=== PATIENT | female | born 1965 | race American Indian/Alaskan Native ===

== ENCOUNTER 2016-07-12 11:57 | Emergency (ER) | payer SELFPAY ==
[2016-07-12 13:21] LABS: Basophils % (Auto) 0.7 % (0.0-1.8); Eosinophils % (Auto) 0.3 % (0.0-4.3); Hematocrit 37.4 % (30.3-42.9); Hemoglobin 12.1 gm/dl (10.1-14.3); Mean Corpuscular HGB Conc 32 % (30-34); Mean Corpuscular Hemoglobin 29 pg (28-32); Mean Corpuscular Volume 90 fl (79-97); Platelet Count 307 K/mm3 (140-440); Red Blood Count 4.17 M/mm3 (3.65-5.03); Red Cell Distribution Width 14.1 % (13.2-15.2); White Blood Count 6.2 K/mm3 (4.5-11.0)
[2016-07-12 13:31] LABS: Anion Gap 19 mmol/L; BUN/Creatinine Ratio 12.85; Blood Urea Nitrogen 9 mg/dL (7-17); Calcium 9.3 mg/dL (8.4-10.2); Carbon Dioxide 26 mmol/L (22-30); Chloride 100.5 mmol/L (98-107); Glucose 88 mg/dL (65-100); Potassium 4.2 mmol/L (3.6-5.0); Sodium 141 mmol/L (137-145)
--- NOTE | 2016-07-12 23:10 | Emergency Department Report ---
ED Dizziness HPI - General Chief Complaint: Dizziness Stated Complaint: DIZZINESS Time Seen by Provider: 07/12/16 23:00 Source: patient Mode of arrival: Ambulatory Limitations: No Limitations - History of Present Illness Initial Comments: Patient reports at 10 AM she was at work when she had the sensation of some lightheadedness. She also noted some left arm pains and some pain in the midportion of her back. She was concerned it may be cardiac in nature. She came to the emergency department for further evaluation and care. She has been in the ED for the last 11 hours. She indicates that over that time. The left arm pain has resolved. She also reports resolution of the dizziness. She states she still has some pains in the right subscapular area. She denies any heavy lifting or strenuous activities that would've caused this pain. Patient did have a visit here 3 months ago regarding chest pain. She did have Lexiscan at that time which was negative. Patient denies any headache currently. She denies any history of migraines in general. MD Complaint: lightheadedness, near syncope, other (R arm pain and back pains) -: Sudden Timing: sudden onset Description: lightheadedness, near-syncope History of Same: No History of Trauma: No Severity: moderate Improves With: remaining still Worsens With: position Associated Symptoms: other (above) - Related Data Home Medications Medication Instructions Recorded Confirmed Last Taken amLODIPine [Norvasc] 10 mg PO DAILY 02/21/16 02/26/16 04/07/16 Previous Rx's Medication Instructions Recorded Last Taken Type Aspirin EC [Aspirin Enteric Coated 81 mg PO QDAY #30 tablet. 02/22/16 Rx TAB] Sulfamethoxazole/Trimethoprim 1 each PO BID #20 tablet 04/13/16 Unknown Rx [Bactrim DS TAB] traMADol [Ultram 50 MG tab] 50 mg PO Q6HR PRN #7 tablet 04/13/16 Unknown Rx Allergies Allergy/AdvReac Type Severity Reaction Status Date / Time No Known Allergies Allergy Verified 07/12/16 12:24 ED Review of Systems ROS: Stated complaint: DIZZINESS Other details as noted in HPI Constitutional: denies: chills, fever Eyes: denies: eye pain, eye discharge, vision change ENT: denies: ear pain, throat pain Respiratory: denies: cough, shortness of breath, wheezing Cardiovascular: denies: chest pain, palpitations Endocrine: no symptoms reported Gastrointestinal: denies: abdominal pain, nausea, diarrhea Genitourinary: denies: urgency, dysuria, discharge Musculoskeletal: back pain. denies: joint swelling, arthralgia Skin: denies: rash, lesions Neurological: denies: headache, weakness, paresthesias Psychiatric: denies: anxiety, depression Hematological/Lymphatic: denies: easy bleeding, easy bruising ED Past Medical Hx - Past Medical History Hx Hypertension: Yes Hx Congestive Heart Failure: No Hx Diabetes: No Hx GERD: Yes Hx Asthma: No Hx COPD: No - Surgical History Additional Surgical History: c section x 3 - Social History Smoking Status: Never Smoker Substance Use Type: Alcohol - Medications Home Medications: Home Medications Medication Instructions Recorded Confirmed Last Taken Type amLODIPine [Norvasc] 10 mg PO DAILY 02/21/16 02/26/16 04/07/16 History Aspirin EC [Aspirin Enteric Coated 81 mg PO QDAY #30 tablet. 02/22/1604/07/16 Rx TAB] Sulfamethoxazole/Trimethoprim 1 each PO BID #20 tablet 04/13/16 Unknown Rx [Bactrim DS TAB] traMADol [Ultram 50 MG tab] 50 mg PO Q6HR PRN #7 tablet 04/13/16 Unknown Rx ED Physical Exam - General Limitations: No Limitations General appearance: alert, in no apparent distress - Head Head exam: Present: atraumatic, normocephalic - Eye Eye exam: Present: normal appearance - ENT ENT exam: Present: normal exam, normal orophraynx, mucous membranes moist - Neck Neck exam: Present: normal inspection - Respiratory Respiratory exam: Present: normal lung sounds bilaterally. Absent: respiratory distress - Cardiovascular Cardiovascular Exam: Present: regular rate, normal rhythm. Absent: systolic murmur, diastolic murmur, rubs, gallop - GI/Abdominal GI/Abdominal exam: Present: soft, normal bowel sounds - Extremities Exam Extremities exam: Present: normal inspection. Absent: tenderness, pedal edema, calf tenderness - Back Exam Back exam: Present: normal inspection - Neurological Exam Neurological exam: Present: alert, oriented X3 - Psychiatric Psychiatric exam: Present: normal affect, normal mood - Skin Skin exam: Present: warm, dry, intact, normal color. Absent: rash ED Course Vital Signs 07/12/16 12:17 Temperature 98.4 F Pulse Rate 70 Respiratory 17 Rate Blood Pressure 156/95 O2 Sat by Pulse 100 Oximetry - Reevaluation(s) Reevaluation #1: 07/12/16 23:01 EKG a 1208 with NSR at 72 bpm normal NC and QRS. Normal axis. No acute ST segment changes noted. Reevaluation #2: 07/12/16 23:17 Unremarkable examination here. Neurologically intact. I do not have concern for neurologic etiology. ECG here is unremarkable. Enzymes 3 are negative. Lexiscan is very reassuring. Barren in general does not sound cardiac in nature. It is unclear to me exactly what caused patient's symptoms. I have some thoughts of possible complex migraine I also question whether she did not have an adequate oral intake earlier this morning with some mild volume depletion. Regardless at this time she is very stable with a normal blood pressure and heart rate. She is intact neurologically. Cardiovascularly I do not have suspicion for about this. I feel she is safe for home. Patient has been given reassurance. She agrees to return if she has any acute return of symptoms. ED Medical Decision Making - Lab Data Result diagrams: 07/12/16 13:00 07/12/16 13:00 Critical care attestation.: If time is entered above; I have spent that time in minutes in the direct care of this critically ill patient, excluding procedure time. ED Disposition Clinical Impression: Near syncope Back pain Qualifiers: Back pain location: thoracic back pain Chronicity: unspecified Back pain laterality: right Qualified Code(s): M54.6 - Pain in thoracic spine Disposition: DISCHARGED TO HOME OR SELFCARE Is pt being admited?: No Does the pt Need Aspirin: No Condition: Stable Instructions: Lightheadedness (ED) Additional Instructions: Eat healthy diet. Take tylenol as needed for pains. Return if worsening. Referrals: PRIMARY CARE, [Primary Care Provider] - 3-5 Days Time of Disposition: 23:12
[2016-07-12] MEDS ORDERED: TYLENOL PO ONE (23:12)
[2016-07-12 23:49] VITALS: BP 134/84
== END 2016-07-12 23:48 | disposition home or self-care (01) ==
LOC: ED 11:57
DX: R55 Syncope and collapse (principal); M54.6 Pain in thoracic spine; M79.601 Pain in right arm; I10 Essential (primary) hypertension; K21.9 Gastro-esophageal reflux disease without esophagitis
CPT/HCPCS: 36415; 80048; 84484; 85025; 93005; 93010

== ENCOUNTER 2016-08-24 08:12 | Emergency (ER) | payer SELFPAY ==
[2016-08-24 09:03] LABS: Basophils % (Auto) 0.9 % (0.0-1.8); Eosinophils % (Auto) 0.6 % (0.0-4.3); Hematocrit 37.5 % (30.3-42.9); Hemoglobin 12.3 gm/dl (10.1-14.3); Mean Corpuscular HGB Conc 33 % (30-34); Mean Corpuscular Hemoglobin 30 pg (28-32); Mean Corpuscular Volume 91 fl (79-97); Platelet Count 315 K/mm3 (140-440); Red Blood Count 4.13 M/mm3 (3.65-5.03); Red Cell Distribution Width 14.3 % (13.2-15.2); White Blood Count 4.9 K/mm3 (4.5-11.0)
[2016-08-24 09:17] LABS: Anion Gap 16 mmol/L; BUN/Creatinine Ratio 11.66; Blood Urea Nitrogen 7 mg/dL (7-17); Calcium 9.3 mg/dL (8.4-10.2); Carbon Dioxide 28 mmol/L (22-30); Chloride 101.4 mmol/L (98-107); Glucose 93 mg/dL (65-100); Potassium 4.1 mmol/L (3.6-5.0); Sodium 141 mmol/L (137-145)
--- NOTE | 2016-08-24 09:33 | XRay Report ---
Chest 2 views . History: Shortness of breath. Findings: The heart and lungs reveal no acute findings or interval changes since February 21, 2016.
[2016-08-24] MEDS ORDERED: TORADOL IM ONE (11:01)
--- NOTE | 2016-08-24 11:04 | Emergency Department Report ---
ED Chest Pain HPI - General Chief Complaint: Chest Pain Stated Complaint: CHEST PAIN/BACK /SOB Time Seen by Provider: 08/24/16 10:57 Source: patient Mode of arrival: Ambulatory Limitations: No Limitations - History of Present Illness Initial Comments: This is a 50-year-old Afro-[place] female who drove herself in to be seen today with complaint of midsternal chest pain with some radiation to the back has been going on intermittently since Sunday, 5 days ago, but worsened slightly last night. She denies any shortness of breath, nausea, vomiting but does have some nonspecific dizziness. She did not take anything for her symptoms prior to presentation. No recent travel or sick contacts at home. 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 The patient had a negative stress test here in February 2016. - Related Data Home Medications Medication Instructions Recorded Confirmed Last Taken amLODIPine [Norvasc] 10 mg PO DAILY 02/21/16 02/26/16 04/07/16 Previous Rx's Medication Instructions Recorded Last Taken Type Aspirin EC [Aspirin Enteric Coated 81 mg PO QDAY #30 tablet. 02/22/16 Rx TAB] Sulfamethoxazole/Trimethoprim 1 each PO BID #20 tablet 04/13/16 Unknown Rx [Bactrim DS TAB] traMADol [Ultram 50 MG tab] 50 mg PO Q6HR PRN #7 tablet 04/13/16 Unknown Rx Allergies Allergy/AdvReac Type Severity Reaction Status Date / Time No Known Allergies Allergy Verified 07/12/16 12:24 ANGELA score - Angela Score Age > 65: (0) No Aspirin use within the Past 7 Days: (0) No 3 or more CAD Risk Factors: (0) No 2 or more Angina events in past 24 hrs: (1) Yes Known CAD with more than 50% Stenosis: (0) No Elevated Cardiac Markers: (0) No ST Deviation Greater than 0.5mm: (0) No ANGELA Score: 1 ED Review of Systems ROS: Stated complaint: CHEST PAIN/BACK /SOB Other details as noted in HPI Comment: All other systems reviewed and negative Constitutional: denies: chills, fever Eyes: denies: eye pain, eye discharge, vision change ENT: denies: ear pain, throat pain Respiratory: denies: cough, shortness of breath, wheezing Cardiovascular: chest pain. denies: palpitations Gastrointestinal: denies: abdominal pain, nausea, diarrhea Genitourinary: denies: urgency, dysuria, discharge Musculoskeletal: back pain. denies: arthralgia Skin: denies: rash, lesions Neurological: denies: headache, weakness, paresthesias ED Past Medical Hx - Past Medical History Hx Hypertension: Yes Hx Congestive Heart Failure: No Hx Diabetes: No Hx GERD: Yes Hx Asthma: No Hx COPD: No - Surgical History Additional Surgical History: c section x 3 - Social History Smoking Status: Never Smoker Substance Use Type: Alcohol - Medications Home Medications: Home Medications Medication Instructions Recorded Confirmed Last Taken Type amLODIPine [Norvasc] 10 mg PO DAILY 02/21/16 02/26/16 04/07/16 History Aspirin EC [Aspirin Enteric Coated 81 mg PO QDAY #30 tablet. 02/22/1604/07/16 Rx TAB] Sulfamethoxazole/Trimethoprim 1 each PO BID #20 tablet 04/13/16 Unknown Rx [Bactrim DS TAB] traMADol [Ultram 50 MG tab] 50 mg PO Q6HR PRN #7 tablet 04/13/16 Unknown Rx ED Physical Exam - General Limitations: No Limitations - Other Other exam information: GENERAL: The patient is well-developed well-nourished. HEENT: Normocephalic. Atraumatic. Extraocular motions are intact. Patient has moist mucous membranes. Pupils equal reactive to light bilaterally. NECK: Supple. Trachea is midline. CHEST/LUNGS: Clear to auscultation. There is no respiratory distress noted. Patient's midsternal chest pain is reproducible to palpation of the chest wall. HEART/CARDIOVASCULAR: Regular. There is no tachycardia. There is no gallop rub or murmur. ABDOMEN: Abdomen is soft, nontender. Patient has normal bowel sounds. There is no abdominal distention. SKIN: Skin is warm and dry. NEURO: The patient is awake, alert, and oriented. The patient is cooperative. The patient has no focal neurologic deficits. The patient has normal speech. MUSCULOSKELETAL: There is no tenderness or deformity. There is no limitation range of motion. There is no evidence of acute injury. ED Course Vital Signs 08/24/16 08/24/16 08:29 11:12 Temperature 98.2 F 98.3 F Pulse Rate 102 H 77 Respiratory 16 Rate Blood Pressure 135/87 Blood Pressure 124/69 [Left] O2 Sat by Pulse 100 96 Oximetry ED Medical Decision Making - Lab Data Result diagrams: 08/24/16 08:44 08/24/16 08:44 - EKG Data -: EKG Interpreted by Me EKG shows normal: sinus rhythm, axis, intervals, QRS complexes, ST-T waves Rate: normal - EKG Data When compared to previous EKG there are: previous EKG unavailable Interpretation: normal EKG - Radiology Data Radiology results: image reviewed interpreted by me: Chest x-ray did not show any acute process. Heart is normal shape and size. No effusions. No pneumothorax. No signs of pneumonia seen. - Medical Decision Making 50-year-old presents with 5 day history of midsternal chest pain with radiation to the back. Patient was evaluated with physical exam, labs, imaging EKG. EKG is normal without ST elevation RI, ischemia or dysrhythmia. Chest x-ray does not show any acute process. Patient's labs were unremarkable including negative troponins 2 and a negative d-dimer. On top of all this, the patient had a negative stress test here [facility] for months ago. Patient was given a dose of Toradol and upon reevaluation says she is feeling much better. The chest pain is reproducible to palpation of chest wall. Patient has a ANGELA score of 1 if her pain is considered to be angina and 0 if not. She is very low on the heart score. From this reason the patient appears safe for discharge home at this time. She'll be given referrals for primary care and cardiology. She will return to the emergency department with any worsening of her symptoms or any acute distress. - Differential Diagnosis costochondritis, GERD, RI, PE Critical Care Time: No Critical care attestation.: If time is entered above; I have spent that time in minutes in the direct care of this critically ill patient, excluding procedure time. ED Disposition Clinical Impression: Chest discomfort, Costochondritis Disposition: DISCHARGED TO HOME OR SELFCARE Is pt being admited?: No Condition: Stable Instructions: Chest Pain (ED), Costochondritis (ED) Additional Instructions: Please follow-up with a primary care doctor in the next few days. I've given a referral for one of the cardiologists at [facility] in the hospital 4 months ago, [address] Quach. Return to the emergency department with any worsening of your symptoms or any acute distress. Referrals: PRIMARY CAREMD [Primary Care Provider] - 3-5 Days SANTANA QUACH MD [Staff Physician] - 3-5 Days ROOSEVELT AMAYA MD [Staff Physician] - 3-5 Days Time of Disposition: 12:33
[2016-08-24 11:28] VITALS: BP 124/69
== END 2016-08-24 13:05 | disposition home or self-care (01) ==
LOC: ED 08:12
DX: M94.0 Chondrocostal junction syndrome [Tietze] (principal); I10 Essential (primary) hypertension; K21.9 Gastro-esophageal reflux disease without esophagitis
CPT/HCPCS: 36415; 71020; 80048; 84484; 84703; 85025; 85379; 93005; 93010; 96372; 99284; J1885

== ENCOUNTER 2018-10-03 10:41 | Emergency (ER) | payer OTHER ==
[2018-10-03 10:47] VITALS: BP 156/82
--- NOTE | 2018-10-03 11:21 | Emergency Department Report ---
ED General Adult HPI - General Chief complaint: High BP Stated complaint: HBP Time Seen by Provider: 10/03/18 11:13 Source: patient Mode of arrival: Ambulatory Limitations: No Limitations - History of Present Illness Initial comments: Patient is 52 years old female with history of hypertension. Patient presented to the ER complaining of headache and high blood pressure. Patient stated that her primary care physician reduce her Norvasc from 10-5. Patient stated that her blood pressure at home was 168 systolic. Patient denied any weakness, numbness or tingling sensation. No bowel or bladder incontinence. Patient denied any chest pain or shortness of breath - Related Data Home Medications Medication Instructions Recorded Confirmed Last Taken amLODIPine [Norvasc] 10 mg PO DAILY 02/21/16 02/26/16 04/07/16 Previous Rx's Medication Instructions Recorded Last Taken Type Aspirin EC 81 mg PO QDAY #30 tablet. 02/22/16 04/07/16 Rx Sulfamethoxazole/Trimethoprim 1 each PO BID #20 tablet 04/13/16 Unknown Rx [Bactrim DS TAB] traMADol [Ultram 50 MG tab] 50 mg PO Q6HR PRN #7 tablet 04/13/16 Unknown Rx Allergies Allergy/AdvReac Type Severity Reaction Status Date / Time No Known Allergies Allergy Verified 07/12/16 12:24 ED Review of Systems ROS: Stated complaint: HBP Other details as noted in HPI Comment: All other systems reviewed and negative Constitutional: denies: chills, fever Cardiovascular: denies: chest pain, palpitations Gastrointestinal: denies: abdominal pain, nausea Musculoskeletal: denies: back pain Neurological: headache. denies: weakness, numbness, paresthesias, confusion, abnormal gait, vertigo ED Past Medical Hx - Past Medical History Previous Medical History?: Yes Hx Hypertension: Yes Hx Congestive Heart Failure: No Hx Diabetes: No Hx GERD: Yes Hx Asthma: No Hx COPD: No - Surgical History Past Surgical History?: Yes Additional Surgical History: c section x 3 - Social History Smoking Status: Never Smoker Substance Use Type: None - Medications Home Medications: Home Medications Medication Instructions Recorded Confirmed Last Taken Type amLODIPine [Norvasc] 10 mg PO DAILY 02/21/16 02/26/16 04/07/16 History Aspirin EC 81 mg PO QDAY #30 tablet. 02/22/16 02/26/16 04/07/16 Rx Sulfamethoxazole/Trimethoprim 1 each PO BID #20 tablet 04/13/16 Unknown Rx [Bactrim DS TAB] traMADol [Ultram 50 MG tab] 50 mg PO Q6HR PRN #7 tablet 04/13/16 Unknown Rx ED Physical Exam - General Limitations: No Limitations General appearance: alert, in no apparent distress - Head Head exam: Present: atraumatic, normocephalic, normal inspection - Eye Eye exam: Present: normal appearance - ENT ENT exam: Present: normal exam, normal orophraynx, mucous membranes moist - Neck Neck exam: Present: normal inspection, full ROM. Absent: tenderness, meningismus, lymphadenopathy, thyromegaly - Respiratory Respiratory exam: Present: normal lung sounds bilaterally - Cardiovascular Cardiovascular Exam: Present: regular rate, normal rhythm, normal heart sounds - GI/Abdominal GI/Abdominal exam: Present: soft, normal bowel sounds. Absent: distended, te nderness, guarding, rebound, rigid, organomegaly, mass, bruit, pulsatile mass, hernia - Extremities Exam Extremities exam: Present: normal inspection, full ROM, normal capillary refill - Neurological Exam Neurological exam: Present: alert, oriented X3, CN II-XII intact, normal gait, reflexes normal - Skin Skin exam: Present: warm, intact, normal color ED Course Vital Signs 10/03/18 10:44 Temperature 97.9 F Pulse Rate 71 Respiratory 18 Rate Blood Pressure 156/82 O2 Sat by Pulse 100 Oximetry ED Medical Decision Making - Radiology Data Radiology results: report reviewed CT brain is unremarkable. Critical care attestation.: If time is entered above; I have spent that time in minutes in the direct care of this critically ill patient, excluding procedure time. ED Disposition Clinical Impression: Hypertension, Headache Disposition: - TO HOME OR SELFCARE Is pt being admited?: No Condition: Stable Instructions: Acute Headache (ED), Hypertension (ED) Referrals: PRIMARY CARE, [Referring] - 3-5 Days
--- NOTE | 2018-10-03 11:46 | Cat Scan Report ---
CT HEAD WITHOUT CONTRAST: HISTORY: Headache, high blood pressure. TECHNIQUE: Sequential 2.5mm CT images. COMPARISON: none. FINDINGS: Cerebral Parenchyma: Within normal limits. Cerebellum: Within normal limits. Brainstem: Within normal limits. Ventricles: Normal. Sella: Normal. Extra-axial spaces: Normal. Basal Cisterns: Normal. Intracranial Hemorrhage: None. Midline Shift: None. Calvarium: Normal. Sinuses: The visualized superior right maxillary sinus is occluded. The remaining sinuses are adequately aerated. Mastoid Air Cells: Normal. Visualized Orbits: Normal. IMPRESSION: Cranial CT scan within normal limits. Right maxillary sinus disease, likely chronic.
== END 2018-10-03 12:25 | disposition home or self-care (01) ==
LOC: ED 10:41
DX: I10 Essential (primary) hypertension (principal); K21.9 Gastro-esophageal reflux disease without esophagitis
CPT/HCPCS: 70450

== ENCOUNTER 2021-11-06 17:32 | Inpatient (IN) | payer SELFPAY ==
[2021-11-06] MEDS ORDERED: METOCLOPRAMIDE 10 MG/2 ML INJ IV ONE (17:47)
[2021-11-06] MEDS ORDERED: LORazepam 2 MG/ML VIAL IV ONE (17:47)
--- NOTE | 2021-11-06 17:48 | Emergency Department Report ---
<KASH BARKLEY - Last Filed: 11/06/21 20:39> ED General Adult HPI - General Chief complaint: Syncope Stated complaint: HEADACHE/SYNCOPE Time Seen by Provider: 11/06/21 17:36 Source: patient, EMS (Verbal report received from emergency medical services. EMS documentation not available at time of chart dictation ), RN notes reviewed, old records reviewed Mode of arrival: Stretcher Limitations: No Limitations - History of Present Illness Initial comments: The patient was evaluated in the emergency department for symptoms described in the history of present illness. He/she was evaluated in the context of the global COVID-19 pandemic, which necessitated consideration that the patient might be at risk for infection with the virus that causes COVID-19. Institutional protocols and algorithms that pertain to the evaluation of patients at risk for COVID-19 are in a state of rapid change based on information released by regulatory bodies including the CDC and federal and state organizations. These policies and algorithms were followed during the patient's care in the emergency department. Please note that these policies, procedures and recommendations changed on a rapid basis. This is a 55-year-old female. She has a history of hypertension and a body mass index of 40.6. She presents to the department today with EMS with a complaint of losing consciousness x3, heart racing, and headache. Her symptoms essent ially started all simultaneously. The headache is occipital, and bitemporal. The headache is not described as sudden or thunderclap in nature. This is not described as the worst headache of her life, she had a similar headache 1 month ago. She denies loss of vision, loss of taste and smell, chest pain and abdominal pain. She denies extremity weakness and numbness. She endorses heart racing, denies travel, surgery, immobilization, DVT and pulmonary embolism risk factors. No recent medication changes. Denies drug use. She is not COVID-19 vaccinated EMS reports unremarkable vital signs in the field with exception of tachycardia. Consistency: intermittent Improves with: none Worsens with: none - Related Data Home Medications Medication Instructions Recorded Confirmed Last Taken amLODIPine 10 mg PO DAILY 02/21/16 02/26/16 04/07/16 Previous Rx's Medication Instructions Recorded Last Taken Type Aspirin EC [Halfprin EC] 81 mg PO QDAY #30 tablet. 10/11/16 11/25/16 Rx Sulfamethoxazole/Trimethoprim 1 each PO BID #20 tablet 04/13/16 Unknown Rx [Bactrim DS TAB] traMADoL [Ultram 50 MG tab] 50 mg PO Q6HR PRN #7 tablet 04/13/16 Unknown Rx Allergies Allergy/AdvReac Type Severity Reaction Status Date / Time No Known Allergies Allergy Verified 11/06/21 17:35 ED Review of Systems Constitutional: denies: fever, malaise Eyes: denies: eye discharge ENT: denies: epistaxis Respiratory: denies: cough Cardiovascular: palpitations, syncope. denies: chest pain Gastrointestinal: denies: abdominal pain, hematemesis, melena, hematochezia Genitourinary: denies: dysuria Neurological: headache, weakness Psychiatric: anxiety ED Past Medical Hx - Past Medical History Hx Hypertension: Yes Hx Congestive Heart Failure: No Hx Diabetes: No Hx GERD: Yes Hx Asthma: No Hx COPD: No - Surgical History Additional Surgical History: c section x 3 - Social History Smoking Status: Never Smoker Substance Use Type: None - Medications Home Medications: Home Medications Medication Instructions Recorded Confirmed Last Taken Type amLODIPine 10 mg PO DAILY 02/21/16 02/26/16 04/07/16 History Aspirin EC [Halfprin EC] 81 mg PO QDAY #30 tablet. 02/22/16 02/26/16 04/07/16 Rx Sulfamethoxazole/Trimethoprim 1 each PO BID #20 tablet 04/13/16 Unknown Rx [Bactrim DS TAB] traMADoL [Ultram 50 MG tab] 50 mg PO Q6HR PRN #7 tablet 04/13/16 Unknown Rx ED Physical Exam - General Limitations: No Limitations General appearance: alert, anxious, obese - Head Head exam: Present: atraumatic, normocephalic - Eye Eye exam: Present: normal appearance, EOMI. Absent: nystagmus - ENT ENT exam: Present: normal exam, normal orophraynx, mucous membranes moist, normal external ear exam - Neck Neck exam: Present: normal inspection, full ROM. Absent: tenderness, meningismus - Respiratory Respiratory exam: Present: normal lung sounds bilaterally. Absent: respiratory distress, wheezes, rales, rhonchi, stridor, decreased breath sounds - Cardiovascular Cardiovascular Exam: Present: normal rhythm, tachycardia, normal heart sounds. Absent: bradycardia, irregular rhythm, systolic murmur, diastolic murmur, rubs, gallop - GI/Abdominal GI/Abdominal exam: Present: soft. Absent: distended, tenderness, guarding, rebound, rigid, pulsatile mass - Extremities Exam Extremities exam: Present: normal inspection, full ROM, other (2+ pulses noted in the bilateral upper and lower extremities. There is no palpable cord. negative Homans sign. Muscular compartments are soft. The pelvis is stable.). Absent: pedal edema, calf tenderness - Back Exam Back exam: Present: normal inspection. Absent: tenderness, CVA tenderness (R), CVA tenderness (L), paraspinal tenderness, vertebral tenderness - Neurological Exam Neurological exam: Present: alert, oriented X3, other (No facial droop. Tongue midline. Extraocular movements intact bilaterally. Facial sensation intact to light touch in V1, V2, V3 distribution bilaterally. 5 and a 5 strength in 4 extremities. Sensation intact to light touch in 4 extremities.). Absent: motor sensory deficit - Psychiatric Psychiatric exam: Present: anxious - Skin Skin exam: Present: warm, dry, intact, normal color. Absent: rash ED Course - Reevaluation(s) Reevaluation #1: 11/06/21 18:22 Differential diagnosis, include but not limited to: Orthostasis, vagal event, structural cardiac disease, acute coronary syndrome, pulmonary embolism, intracranial hemorrhage, anxiety, conversion disorder Assessment and plan: 55-year-old female, presenting with tachycardia, syncope x3, and headache. She is clinically sober with a GCS of 15 and has a nonfocal motor examination. She has no meningeal signs, no recent chiropractic manipulation, and no recent motor vehicle accident. Headache not described as sudden or thunderclap in nature, and is not described as the worst headache of her life, she had a similar headache about 1 month ago. In addition, we will obtain CT scan of the brain within 6 hours of symptom onset. I think subarachnoid hemorrhage is very unlikely given the aforementioned. Patient to be placed on telemetry monitor, treat symptoms, and obtain appropriate laboratory studies. Given complaint of syncope x3, and tachycardia, obtain CT angiogram chest to evaluate for pulmonary embolism. Reassess after initial diagnostics have resulted. Anticipate admission to the medical service once initial diagnostics have resulted. I discussed this plan of care with the patient. She is agreeable to the plan of care. All questions are answered 11/06/21 20:30 CT scan chest negative for pulmonary embolism. Awaiting CT scan brain interpretation 11/06/21 20:39 CT head read negative for acute findings. Oncoming ER physician will admit to nocturnal hospital physician. Patient resting comfortably in stretcher and in no acute distress - Pulse Oximetry Interpretation Digit-Finger Initial Pulse Oximetry Readin O2 Sat by Pulse Oximetry: 99 Actions Taken: none ED Medical Decision Making - Lab Data Result diagrams: 11/06/21 18:16 11/06/21 18:16 Vital Signs 11/06/21 11/06/21 17:32 18:20 Temperature 98.7 F Pulse Rate 105 H Respiratory 14 Rate Blood Pressure 148/92 [Left] O2 Sat by Pulse 100 Oximetry Lab Results 11/06/21 11/06/21 11/06/21 Range/Units 18:16 18:16 18:16 WBC 6.6 (4.5-11.0) K/mm3 RBC 4.36 (3.65-5.03) M/mm3 Hgb 12.9 (10.1-14.3) gm/dl Hct 39.5 (30.3-42.9) % MCV 91 (79-97) fl MCH 30 (28-32) pg MCHC 33 (30-34) % RDW 14.2 (13.2-15.2) % Plt Count 349 (140-440) K/mm3 Lymph % (Auto) 19.6 (13.4-35.0) % [place] % (Auto) 6.3 (0.0-7.3) % Eos % (Auto) 0.3 (0.0-4.3) % Baso % (Auto) 0.9 (0.0-1.8) % Lymph # (Auto) 1.3 (1.2-5.4) K/mm3 [place] # (Auto) 0.4 (0.0-0.8) K/mm3 Eos # (Auto) 0.0 (0.0-0.4) K/mm3 Baso # (Auto) 0.1 (0.0-0.1) K/mm3 Seg Neutrophils % 72.9 H (40.0-70.0) % Seg Neutrophils # 4.8 (1.8-7.7) K/mm3 PT 13.0 (12.2-14.9) Sec. INR 0.87 (0.87-1.13) D-Dimer 405.04 H (0-234) ng/mlDDU Sodium 141 (137-145) mmol/L Potassium 3.8 (3.6-5.0) mmol/L Chloride 103.4 (98-107) mmol/L Carbon Dioxide 25 (22-30) mmol/L Anion Gap 16 mmol/L BUN 9 (7-17) mg/dL Creatinine 0.7 (0.6-1.2) mg/dL Estimated GFR > 60 ml/min BUN/Creatinine Ratio 13 % Glucose 105 H (65-100) mg/dL Calcium 9.9 (8.4-10.2) mg/dL Magnesium 2.00 (1.7-2.3) mg/dL Total Bilirubin 0.20 (0.1-1.2) mg/dL AST 15 (5-40) units/L ALT 15 (7-56) units/L Alkaline Phosphatase 84 (35-129) units/L Troponin T < 0.010 (0.00-0.029) ng/mL Total Protein 8.4 H (6.3-8.2) g/dL Albumin 4.6 (3.9-5) g/dL Albumin/Globulin Ratio 1.2 % Urine Opiates Screen Urine Methadone Screen Ur Barbiturates Screen Ur Phencyclidine Scrn Ur Amphetamines Screen U Benzodiazepines Scrn Urine Cocaine Screen U Marijuana (THC) Screen Drugs of Abuse Note Plasma/Serum Alcohol (0-0.07) % 11/06/21 11/06/21 Range/Units 18:16 18:32 WBC (4.5-11.0) K/mm3 RBC (3.65-5.03) M/mm3 Hgb (10.1-14.3) gm/dl Hct (30.3-42.9) % MCV (79-97) fl MCH (28-32) pg MCHC (30-34) % RDW (13.2-15.2) % Plt Count (140-440) K/mm3 Lymph % (Auto) (13.4-35.0) % [place] % (Auto) (0.0-7.3) % Eos % (Auto) (0.0-4.3) % Baso % (Auto) (0.0-1.8) % Lymph # (Auto) (1.2-5.4) K/mm3 [place] # (Auto) (0.0-0.8) K/mm3 Eos # (Auto) (0.0-0.4) K/mm3 Baso # (Auto) (0.0-0.1) K/mm3 Seg Neutrophils % (40.0-70.0) % Seg Neutrophils # (1.8-7.7) K/mm3 PT (12.2-14.9) Sec. INR (0.87-1.13) D-Dimer (0-234) ng/mlDDU Sodium (137-145) mmol/L Potassium (3.6-5.0) mmol/L Chloride (98-107) mmol/L Carbon Dioxide (22-30) mmol/L Anion Gap mmol/L BUN (7-17) mg/dL Creatinine (0.6-1.2) mg/dL Estimated GFR ml/min BUN/Creatinine Ratio % Glucose (65-100) mg/dL Calcium (8.4-10.2) mg/dL Magnesium (1.7-2.3) mg/dL Total Bilirubin (0.1-1.2) mg/dL AST (5-40) units/L ALT (7-56) units/L Alkaline Phosphatase (35-129) units/L Troponin T (0.00-0.029) ng/mL Total Protein (6.3-8.2) g/dL Albumin (3.9-5) g/dL Albumin/Globulin Ratio % Urine Opiates Screen Negative Urine Methadone Screen Negative Ur Barbiturates Screen Negative Ur Phencyclidine Scrn Negative Ur Amphetamines Screen Negative U Benzodiazepines Scrn Negative Urine Cocaine Screen Negative U Marijuana (THC) Screen Negative Drugs of Abuse Note Disclamer Plasma/Serum Alcohol < 0.01 (0-0.07) % - EKG Data -: EKG Interpreted by Nv EKG shows normal: sinus rhythm Rate: normal - EKG Data When compared to previous EKG there are: previous EKG unavailable (Unable to access old EKG) 11/06/21 18:21 The EKG is interpreted at 17: 53 Sinus rhythm, rate 98 bpm. Normal axis, normal P wave axis, left ventricular hypertrophy, QTC 4 5 8 ms. This is an abnormal EKG. This is not a STEMI. - Radiology Data Radiology results: pending, report reviewed, image reviewed interpreted by me: 1 view x-ray of the chest, interpreted myself, clear lungs, no infiltrate, no pneumothorax CTA CHEST WITH IV CONTRAST INDICATION: tachycardia syncope x 3. Chest pain dyspnea TECHNIQUE: Axial CT images were obtained through the chest after injection of 100 mL Omnipaque 350 IV contrast. 3 plane MIP reconstructions were produced. All CT scans at this location are performed using CT dose reduction for ALARA by means of automated exposure control. COMPARISON: None available. FINDINGS: PULMONARY ARTERIES: Limited evaluation secondary to extensive artifact. No PTE appreciated.. AORTA AND ARTERIES: No acute abnormality. MEDIASTINUM: No mass, lymphadenopathy or other significant abnormality. The heart is normal in size without a pericardial effusion. The trachea and main bronchi are patent and normal in caliber. LUNGS: No suspicious consolidation, nodule or mass. No pneumothorax or pleural effusion. ADDITIONAL FINDINGS: None. UPPER ABDOMEN: No acute findings. BONES: No significant osseous abnormality. IMPRESSION: 1. No CT evidence for pulmonary embolism. 2. No acute findings. Signer Name: Harjeet Estrada MD Signed: 11/06/2021 7:23 PM Workstation Name: [employer] CHEST 1 VIEW INDICATION / CLINICAL INFORMATION: Syncope,tachytcardia. FINDINGS: SUPPORT DEVICES: None. HEART / MEDIASTINUM: No significant abnormality. LUNGS / PLEURA: No significant pulmonary or pleural abnormality. No pneumothorax. ADDITIONAL FINDINGS: No significant additional findings. IMPRESSION: 1. No acute findings. Signer Name: Harjeet Estrada MD Signed: 11/06/2021 5:[address] head/brain wo con INDICATION / CLINICAL INFORMATION: 55 years Female; sadler syncope tachycardia. TECHNIQUE: Routine CT head without contrast. All CT scans at this location are performed using CT dose reduction for ALARA by means of a utomated exposure control. COMPARISON: None available. FINDINGS: BRAIN / INTRACRANIAL CONTENTS: The brain parenchyma appears to demonstrate appropriate attenuation for age. The ventricular system is unchanged in size and configuration. There is no CT evidence of acute intracranial hemorrhage or s ignificant mass effect. ORBITS: No significant abnormality of visualized orbits. SINUSES / MASTOIDS: There is near complete opacification the visualized right maxillary sinus with wall thickening indicative of chronic territory process at. Mild opacification is seen within the adjacent ethmoid air cells. CRANIOCERVICAL JUNCTION: The cerebellar tonsils extend to the inferior margin of the foramen of magnum ADDITIONAL FINDINGS: There is note of an empty sella which is typically seen is an incidental finding. IMPRESSION: 1. There is no clear CT evidence of acute intracranial process. Signer Name: Kash Bangura MD Signed: 11/06/2021 7:34 PM Workstation Name: [id number] ED Disposition Clinical Impression: Headache, Syncope, Tachycardia Disposition: 09 ADMITTED INPATIENT Is pt being admited?: Yes Condition: Good <JOHNY SINGH - Last Filed: 11/06/21 23:54> ED Review of Systems ROS: Stated complaint: HEADACHE/SYNCOPE Other details as noted in HPI ED Course Vital Signs 11/06/21 11/06/21 11/06/21 17:32 18:20 18:32 Temperature 98.7 F 98.7 F Pulse Rate 105 H 106 H Pulse Rate [ 83 Lying] Pulse Rate [ 92 H Sitting] Pulse Rate [ 89 Standing] Respiratory 14 17 Rate Blood Pressure 145/75 Blood Pressure 148/92 145/75 [Left] Blood Pressure 136/61 [Lying] Blood Pressure 152/75 [Sitting] Blood Pressure 145/75 [Standing] O2 Sat by Pulse 100 99 Oximetry O2 Sat by Pulse Oximetry [ Digit-Finger] 11/06/21 11/06/21 11/06/21 19:00 20:00 20:40 Temperature Pulse Rate 90 90 Pulse Rate [ Lying] Pulse Rate [ Sitting] Pulse Rate [ Standing] Respiratory 18 18 Rate Blood Pressure Blood Pressure 137/81 121/60 [Left] Blood Pressure [Lying] Blood Pressure [Sitting] Blood Pressure [Standing] O2 Sat by Pulse 98 98 Oximetry O2 Sat by Pulse 99 Oximetry [ Digit-Finger] 11/06/21 11/06/21 11/06/21 20:54 21:00 21:16 Temperature Pulse Rate 75 67 Pulse Rate [ Lying] Pulse Rate [ Sitting] Pulse Rate [ Standing] Respiratory 13 13 15 Rate Blood Pressure 152/70 152/70 Blood Pressure [Left] Blood Pressure [Lying] Blood Pressure [Sitting] Blood Pressure [Standing] O2 Sat by Pulse 98 100 Oximetry O2 Sat by Pulse Oximetry [ Digit-Finger] 11/06/21 11/06/21 11/06/21 21:30 21:46 22:06 Temperature Pulse Rate 70 80 Pulse Rate [ Lying] Pulse Rate [ Sitting] Pulse Rate [ Standing] Respiratory 18 16 Rate Blood Pressure 152/70 152/70 174/77 Blood Pressure [Left] Blood Pressure [Lying] Blood Pressure [Sitting] Blood Pressure [Standing] O2 Sat by Pulse 97 100 Oximetry O2 Sat by Pulse Oximetry [ Digit-Finger] 11/06/21 22:16 Temperature Pulse Rate Pulse Rate [ Lying] Pulse Rate [ Sitting] Pulse Rate [ Standing] Respiratory Rate Blood Pressure 174/77 Blood Pressure [Left] Blood Pressure [Lying] Blood Pressure [Sitting] Blood Pressure [Standing] O2 Sat by Pulse 98 Oximetry O2 Sat by Pulse Oximetry [ Digit-Finger] ED Medical Decision Making - Lab Data Result diagrams: 11/06/21 18:16 11/06/21 18:16 - Medical Decision Making case d/w Dr Gordon/hospitalist to admit Critical care attestation.: If time is entered above; I have spent that time in minutes in the direct care of this critically ill patient, excluding procedure time. ED Disposition Is pt being admited?: Yes
[2021-11-06] MEDS ORDERED: SODIUM CHLORIDE 0.9% 500 ML 500 ML IV ONE (18:24)
[2021-11-06] MEDS ORDERED: BUTALB/ACETAMINOPHEN/CAFFEINE TAB PO ONE (18:24)
[2021-11-06 18:45] LABS: Basophils # (Auto) 0.1 K/mm3 (0.0-0.1); Basophils % (Auto) 0.9 % (0.0-1.8); Eosinophils % (Auto) 0.3 % (0.0-4.3); Hematocrit 39.5 % (30.3-42.9); Hemoglobin 12.9 gm/dl (10.1-14.3); Lymphocytes # (Auto) 1.3 K/mm3 (1.2-5.4); Lymphocytes % (Auto) 19.6 % (13.4-35.0); Mean Corpuscular HGB Conc 33 % (30-34); Mean Corpuscular Volume 91 fl (79-97); Monocytes # (Auto) 0.4 K/mm3 (0.0-0.8); Monocytes % (Auto) 6.3 % (0.0-7.3); Platelet Count 349 K/mm3 (140-440); Red Blood Count 4.36 M/mm3 (3.65-5.03); Red Cell Distribution Width 14.2 % (13.2-15.2)
[2021-11-06 18:46] LABS: Amphetamine Screen,Urine Negative; Benzodiazepines Screen,Urine Negative; Cannabinoid Screen,Urine Negative; Cocaine Screen,Urine Negative; Methadone Screen,Urine Negative; Opiate Screen,Urine Negative
[2021-11-06 18:54] LABS: INR 0.87 (0.87-1.13)
[2021-11-06 19:03] LABS: Alanine Aminotransferase 15 units/L (7-56); Albumin 4.6 g/dL (3.9-5); Blood Urea Nitrogen 9 mg/dL (7-17); Calcium 9.9 mg/dL (8.4-10.2); Hemolysis Index 3
--- NOTE | 2021-11-06 19:04 | XRay Report ---
CHEST 1 VIEW INDICATION / CLINICAL INFORMATION: Syncope,tachytcardia. FINDINGS: SUPPORT DEVICES: None. HEART / MEDIASTINUM: No significant abnormality. LUNGS / PLEURA: No significant pulmonary or pleural abnormality. No pneumothorax. ADDITIONAL FINDINGS: No significant additional findings. IMPRESSION: 1. No acute findings. Signer Name: Harjeet Estrada MD Signed: 11/06/2021 6:59 PM Workstation Name: [employer]
[2021-11-06 19:38] LABS: BUN/Creatinine Ratio 13
--- NOTE | 2021-11-06 20:27 | Cat Scan Report ---
CTA CHEST WITH IV CONTRAST INDICATION: tachycardia syncope x 3. Chest pain dyspnea TECHNIQUE: Axial CT images were obtained through the chest after injection of 100 mL Omnipaque 350 IV contrast. 3 plane MIP reconstructions were produced. All CT scans at this location are performed using CT dose reduction for ALARA by means of automated exposure control. COMPARISON: None available. FINDINGS: PULMONARY ARTERIES: Limited evaluation secondary to extensive artifact. No PTE appreciated.. AORTA AND ARTERIES: No acute abnormality. MEDIASTINUM: No mass, lymphadenopathy or other significant abnormality. The heart is normal in size w ithout a pericardial effusion. The trachea and main bronchi are patent and normal in caliber. LUNGS: No suspicious consolidation, nodule or mass. No pneumothorax or pleural effusion. ADDITIONAL FINDINGS: None. UPPER ABDOMEN: No acute findings. BONES: No significant osseous abnormality. IMPRESSION: 1. No CT evidence for pulmonary embolism. 2. No acute findings. Signer Name: Harjeet Estrada MD Signed: 11/06/2021 8:23 PM Workstation Name: [id number]
--- NOTE | 2021-11-06 20:39 | Cat Scan Report ---
CT head/brain wo con INDICATION / CLINICAL INFORMATION: 55 years Female; sadler syncope tachycardia. TECHNIQUE: Routine CT head without contrast. All CT scans at this location are performed using CT dos e reduction for ALARA by means of automated exposure control. COMPARISON: None available. FINDINGS: BRAIN / INTRACRANIAL CONTENTS: The brain parenchyma appears to demonstrate appropriate attenuation fo r age. The ventricular system is unchanged in size and configuration. There is no CT evidence of acut e intracranial hemorrhage or significant mass effect. ORBITS: No significant abnormality of visualized orbits. SINUSES / MASTOIDS: There is near complete opacification the visualized right maxillary sinus with wa ll thickening indicative of chronic territory process at. Mild opacification is seen within the adjac ent ethmoid air cells. CRANIOCERVICAL JUNCTION: The cerebellar tonsils extend to the inferior margin of the foramen of magnu m ADDITIONAL FINDINGS: There is note of an empty sella which is typically seen is an incidental finding . IMPRESSION: 1. There is no clear CT evidence of acute intracranial process. Signer Name: Golden Bangura MD Signed: 11/06/2021 8:34 PM Workstation Name: [id number]
[2021-11-06] MEDS ORDERED: ACETAMINOPHEN 325 MG TAB PO PRN (22:15)
[2021-11-06] MEDS ORDERED: MORPHINE 4 MG/1 ML INJ IV PRN (22:15)
[2021-11-06] MEDS ORDERED: ONDANSETRON 4 MG/2 ML INJ IV PRN (22:15)
[2021-11-06] MEDS ORDERED: MORPHINE 2 MG/1 ML INJ IV PRN (22:15)
[2021-11-06] MEDS ORDERED: MAGNESIUM HYDROXIDE (MOM) ORAL LIQD UDC PO PRN (22:15)
--- NOTE | 2021-11-06 22:23 | History and Physical Report ---
History of Present Illness Date of examination: 11/06/21 Date of admission: 11/06/2021 Chief complaint: Syncope Headache Palpitation History of present illness: 55-year-old -Congolese female with known history of hypertension presents to the emergency room today complaining of headache, syncope and palpitation which started today. Symptoms were said to have started suddenly and patient has had about 3 syncopal episode prior to reporting to the emergency room. She also indicates that she lost consciousness during this episodes. Headache has been in the occipital region and has had some associated blurry vision. She denies any nausea or vomiting, denies any chest pain or shortness of breath, denies any neck pain, no fever or chills, no abdominal pain, no hematuria or dysuria. Denies any bright red blood per rectum. Patient denies any sick contacts and no recent travel. Upon arrival in the emergency room patient was found to be tachycardic. Work-up in the emergency room today, chest x-ray was unremarkable. CT scan of the head was also unremarkable. Labs reveals D-dimer of 405 otherwise all other labs were essentially negative. CT angiogram of the chest was negative for pulmonary embolism. Patient is being admitted for syncope, headache and tachycardia. Past History Past Medical History: GERD, hypertension Past Surgical History: (x3) Social history: no significant social history Family history: no significant family history Medications and Allergies Allergies Allergy/AdvReac Type Severity Reaction Status Date / Time No Known Allergies Allergy Verified 11/06/21 17:35 Home Medications Medication Instructions Recorded Confirmed Last Taken Type amLODIPine 10 mg PO DAILY 02/21/16 02/26/16 04/07/16 History Aspirin EC [Halfprin EC] 81 mg PO QDAY #30 tablet. 02/22/16 02/26/16 04/07/16 Rx Sulfamethoxazole/Trimethoprim 1 each PO BID #20 tablet 04/13/16 Unknown Rx [Bactrim DS TAB] traMADoL [Ultram 50 MG tab] 50 mg PO Q6HR PRN #7 tablet 04/13/16 Unknown Rx Active Meds: Active Medications Acetaminophen (Acetaminophen 325 Mg Tab) 650 mg PO Q4H PRN PRN Reason: Pain MILD(1-3)/Fever >100.5/CHILD Ondansetron HCl (Ondansetron 4 Mg/2 Ml Inj) 4 mg IV Q8H PRN PRN Reason: Nausea And Vomiting Sodium Chloride (Sodium Chloride 0.9% 10 Ml Flush Syringe) 10 ml IV BID SANTIAGO Review of Systems Constitutional: no fever, no chills Ears, nose, mouth and throat: no nasal congestion, no sore throat Cardiovascular: palpitations, no chest pain Respiratory: no cough, no shortness of breath, no wheezing Gastrointestinal: no abdominal pain, no nausea, no vomiting, no diarrhea Genitourinary Female: no pelvic pain, no flank pain, no dysuria, no hematuria Musculoskeletal: no neck pain, no low back pain Integumentary: no rash, no pruritis Neurological: syncope, headaches, no confusion Psychiatric: no anxiety, no depression Endocrine: no polyphagia, no polydipsia, no polyuria, no nocturia Exam - Constitutional Vitals: Temp Pulse Resp BP Pulse Ox 98.7 F 90 18 121/60 99 11/06/21 18:32 11/06/21 20:00 11/06/21 20:00 11/06/21 20:00 11/06/21 20:40 General appearance: Present: no acute distress, well-nourished, obese - EENT Eyes: Present: PERRL, EOM intact. Absent: scleral icterus ENT: hearing intact, clear oral mucosa, dentition normal - Neck Neck: Present: supple, normal ROM - Respiratory Respiratory effort: normal Respiratory: bilateral: CTA - Cardiovascular Rhythm: regular Heart Sounds: Present: S1 & S2. Absent: gallop, systolic murmur, diastolic murmur, rub, click - Extremities Extremities: no ischemia, pulses intact, pulses symmetrical, No edema, normal temperature, normal color, Full ROM Peripheral Pulses: within normal limits - Abdominal General gastrointestinal: Present: soft, non-tender, non-distended, normal bowel sounds. Absent: mass - Integumentary Integumentary: Present: clear, warm, dry, normal turgor. Absent: rash - Musculoskeletal Musculoskeletal: strength equal bilaterally - Psychiatric Psychiatric: appropriate mood/affect, intact judgment & insight, memory intact, cooperative - Neurologic Neurologic: CNII-XII intact, no focal deficits, moves all extremities HEART Score - HEART Score Troponin: Troponin T < 0.010 ng/mL (0.00-0.029) 11/06/21 18:16 Results - Labs CBC & Chem 7: 11/06/21 18:16 11/06/21 18:16 Labs: Abnormal lab results 11/06/21 11/06/21 11/06/21 Range/Units 18:16 18:16 18:16 Seg Neutrophils % 72.9 H (40.0-70.0) % D-Dimer 405.04 H (0-234) ng/mlDDU Glucose 105 H (65-100) mg/dL Total Protein 8.4 H (6.3-8.2) g/dL Assessment and Plan Assessment: 1. Syncope 2. Tachycardiaetiology unclear 3. Headache 4. Hypertension Plan: 1. Patient admitted to telemetry. We will monitor EKG and also monitor vitals closely. 2. We will schedule patient for echocardiogram, MRI of the brain. 3. Consult placed to neurology for evaluation and recommendations. 4. We will resume routine home medications once reconciled. 5. We will monitor labs including thyroid function. DVT Prophylaxis: SQ Heparin Code Status: Full Code.
[2021-11-07 05:06] LABS: Basophils % (Auto) 0.6 % (0.0-1.8); Eosinophils # (Auto) 0.1 K/mm3 (0.0-0.4); Eosinophils % (Auto) 0.9 % (0.0-4.3); Hematocrit 37.2 % (30.3-42.9); Hemoglobin 12.2 gm/dl (10.1-14.3); Lymphocytes # (Auto) 2.2 K/mm3 (1.2-5.4); Lymphocytes % (Auto) 36.5 % (13.4-35.0); Mean Corpuscular HGB Conc 33 % (30-34); Mean Corpuscular Volume 91 fl (79-97); Monocytes # (Auto) 0.4 K/mm3 (0.0-0.8); Monocytes % (Auto) 7.3 % (0.0-7.3); Platelet Count 307 K/mm3 (140-440); Red Blood Count 4.08 M/mm3 (3.65-5.03); Red Cell Distribution Width 13.9 % (13.2-15.2)
[2021-11-07 05:26] LABS: Blood Urea Nitrogen 7 mg/dL (7-17); Calcium 9.3 mg/dL (8.4-10.2); Hemolysis Index 119
[2021-11-07 05:57] LABS: BUN/Creatinine Ratio 12
[2021-11-07] MEDS ORDERED: HEPARIN 5,000 UNIT/1 ML VIAL SUB-Q SCH (06:00)
--- NOTE | 2021-11-07 09:47 | Magnetic Resonance Report ---
MRI BRAIN 11/07/2021 INDICATION / CLINICAL INFORMATION: Headache, syncope. TECHNIQUE: Multiplanar, multisequence MR images of the brain were obtained. COMPARISON: None available. FINDINGS: BRAIN / INTRACRANIAL CONTENTS: Unenhanced MR images of the brain demonstrate no evidence of acute abn ormality. Ventricles and sulci are normal in size and shape. There is no evidence of ischemic injury, demyelination, hemorrhage, or mass. There are no abnormal ex tra-axial fluid collections. EXTRACRANIAL: Unremarkable CRANIOCERVICAL JUNCTION: The cerebellar tonsils extend approximately 5 mm below the plane of the fora men magnum, which is considered to be at the upper limits of normal anatomic variation. VASCULAR FLOW-VOIDS: No significant abnormality. IMPRESSION: Negative unenhanced MRI of the brain. 5 mm cerebellar tonsillar ectopia, of unlikely clinical significance. Signer Name: Boogie Gipson MD Signed: 11/07/2021 9:43 AM Workstation Name: [id number]
--- NOTE | 2021-11-07 10:50 | Electrocardiograph Report ---
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
--- NOTE | 2021-11-07 11:20 | Discharge Summary ---
Providers - Providers Date of Admission: 11/06/21 22:15 Date of discharge: 11/07/21 Attending physician: KURTIS CORONA MD 11/06/21 22:15 Consult to Physician [CONS] Routine Comment: Consulting Provider: KARLOS CAMPOS Physician Instructions: Reason For Exam: Syncope,Headache Primary care physician: RECEIVABLE CLERK Hospitalization Reason for admission: Syncope, headache Condition: Good Pertinent studies: Reviewed. Procedures: None. Hospital course: Patient is a 55-year-old female past medical history of hypertension and morbid obesity who presented to the ED with complaints of heart palpitations, headache, and reported loss of consciousness by her family (patient had no memory of syncopizing). Patient describes having various episodes of palpitations that last for minutes at a time while at rest. Patient associates her headaches so with elevated blood pressures. The headache is occipital and bitemporal but not described as "thunderclap", sudden, or associated with nausea, vomiting, vision changes, or altered mentation. Patient denies any chest pain or chest pressure. In the ED, the patient was found to have a heart rate of 105 and mildly elevated blood pressure, but she remained hemodynamically stable. Patient underwent chest x-ray, CT head noncontrast, CT angio chest, and MRI brain that have been found to be unremarkable. EKG is unremarkable and revealing sinus rhythm with a heart rate of 71. TTE is unremarkable. The patient's blood pressure medicines have been modified. The patient has been counseled upon checking her blood pressure regularly throughout the week. Patient will also be referred to cardiology for further evaluation. Patient is medically clear for discharge. Disposition: 01 HOME / SELF CARE / HOMELESS Final Discharge Diagnosis (Prints w/discharge instructions): Headache, syncope, hypertension, morbid obesity. Time spent for discharge: 45 min Core Measure Documentation - Palliative Care Palliative Care/ Comfort Measures: Not Applicable - Core Measures Any of the following diagnoses?: none Exam - Constitutional Vitals: Temp Pulse Resp BP Pulse Ox 98.3 F 76 18 108/58 98 11/07/21 07:34 11/07/21 07:35 11/07/21 07:34 11/07/21 07:34 11/07/21 07:35 General appearance: Present: no acute distress, well-nourished, obese - EENT Eyes: Present: PERRL, EOM intact ENT: hearing intact, clear oral mucosa, dentition normal - Neck Neck: Present: supple, normal ROM - Respiratory Respiratory effort: normal Respiratory: bilateral: CTA - Cardiovascular Rhythm: regular Heart Sounds: Present: S1 & S2 - Extremities Extremities: no ischemia, pulses intact, pulses symmetrical, No edema, normal temperature, normal color, Full ROM Peripheral Pulses: within normal limits - Abdominal General gastrointestinal: Present: soft, non-tender, non-distended, normal bowel sounds Female genitourinary: Present: deferred - Rectal Rectal Exam: deferred - Integumentary Integumentary: Present: clear, warm, dry - Musculoskeletal Musculoskeletal: strength equal bilaterally - Psychiatric Psychiatric: appropriate mood/affect, intact judgment & insight, memory intact, cooperative - Neurologic Neurologic: CNII-XII intact, moves all extremities - Allied Health Allied health notes reviewed: nursing Plan Activity: advance as tolerated Diet: low salt Additional Instructions: Patient is a 55-year-old female past medical history of hypertension and morbid obesity who presented to the ED with complaints of heart palpitations, headache, and reported loss of consciousness by her family (patient had no memory of syncopizing). Patient describes having various episodes of palpitations that last for minutes at a time while at rest. Patient associates her headaches so with elevated blood pressures. The headache is occipital and bitemporal but not described as "thunderclap", sudden, or associated with nausea, vomiting, vision changes, or altered mentation. Patient denies any chest pain or chest pressure. In the ED, the patient was found to have a heart rate of 105 and mildly elevated blood pressure, but she remained hemodynamically stable. Patient underwent chest x-ray, CT head noncontrast, CT angio chest, and MRI brain that have been found to be unremarkable. EKG is unremarkable and revealing sinus rhythm with a heart rate of 71. TTE is unremarkable. The patient's blood pressure medicines have been modified. The patient has been counseled upon checking her blood pressure regularly throughout the week. Patient will also be referred to cardiology for further evaluation. Patient is medically clear for discharge. Care Plan Goals: Patient is medically clear for discharge. Assessment: Patient is a 55-year-old female past medical history of hypertension and morbid obesity who presented to the ED with complaints of heart palpitations, headache, and reported loss of consciousness by her family (patient had no memory of syncopizing). Patient describes having various episodes of palpitations that last for minutes at a time while at rest. Patient associates her headaches so with elevated blood pressures. The headache is occipital and bitemporal but not described as "thunderclap", sudden, or associated with nausea, vomiting, vision changes, or altered mentation. Patient denies any chest pain or chest pressure. In the ED, the patient was found to have a heart rate of 105 and mildly elevated blood pressure, but she remained hemodynamically stable. Patient underwent chest x-ray, CT head noncontrast, CT angio chest, and MRI brain that have been found to be unremarkable. EKG is unremarkable and revealing sinus rhythm with a heart rate of 71. TTE is unremarkable. The patient's blood pressure medicines have been modified. The patient has been counseled upon checking her blood pressure regularly throughout the week. Patient will also be referred to cardiology for further evaluation. Patient is medically clear for discharge. Follow up with: PRIMARY CAREMD [Primary Care Provider] - 3-5 Days Forms: Work/School Release Form Prescriptions: amLODIPine 10 mg PO DAILY #30 tab Metoprolol [Lopressor TAB] 50 mg PO BID #60 tab
[2021-11-07 11:52] VITALS: BP 109/58
--- NOTE | 2021-11-07 14:03 | Vascular Lab Report ---
DUPLEX DOPPLER LOWER EXTREMITY VEINS, BILATERAL INDICATION: Concern for DVT. TECHNIQUE: Duplex doppler imaging was performed through the veins of both lower extremities using ve nous compression and other maneuvers. COMPARISON: No relevant prior imaging study available. FINDINGS: Right Common femoral vein: Negative. Right Superficial femoral vein: Negative. Right Popliteal vein: Negative. Right Calf veins: Negative. Left Common femoral vein: Negative. Left Superficial femoral vein: Negative. Left Popliteal vein: Negative. Left Calf veins: Negative. Additional findings: None. IMPRESSION: No sonographic evidence for DVT in either lower extremity. Signer Name: Catarino Kelly Jr, MD Signed: 11/07/2021 1:58 PM Workstation Name: [id number]
--- NOTE | 2021-11-08 12:08 | Electrocardiograph Report ---
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
== END 2021-11-07 14:57 | disposition home or self-care (01) | DRG 312 ==
LOC: ED 17:32 → 4A 22:15
PROVIDERS: ADMIT Internal Medicine Geriatric Medicine; ATTEND Student in an Organized Health Care Education/Training Program
DX: R55 Syncope and collapse (principal); Z68.41 Body mass index [BMI] 40.0-44.9, adult; I10 Essential (primary) hypertension; K21.9 Gastro-esophageal reflux disease without esophagitis; Z79.82 Long term (current) use of aspirin; R00.0 Tachycardia, unspecified; E66.01 Morbid (severe) obesity due to excess calories
CPT/HCPCS: 36415; 70450; 70551; 71045; 71275; 80048; 80053; 80307; 80320; 83735; 84443; 84484; 85025; 85379; 85610; 93005; 93306; 93970; G0378; C8929; G0480; J1644; J2060; J2765; J7040; Q9967

== ENCOUNTER 2021-11-21 09:39 | Emergency (ER) | payer SELFPAY ==
[2021-11-21 09:51] VITALS: BP 133/83
[2021-11-21] MEDS ORDERED: ASPIRIN 325 MG TAB PO ONE (09:51)
--- NOTE | 2021-11-21 10:18 | XRay Report ---
CHEST 2 VIEWS INDICATION / CLINICAL INFORMATION: chest pain. COMPARISON: One view of the chest from 11/06/2021. FINDINGS: SUPPORT DEVICES: None. HEART / MEDIASTINUM: No significant abnormality. LUNGS / PLEURA: No significant pulmonary abnormality. No significant pleural effusion. No pneumothora x. ADDITIONAL FINDINGS: No significant additional findings. IMPRESSION: 1. No acute abnormality of the chest. Signer Name: Chago Luna MD Signed: 11/21/2021 10:13 AM Workstation Name: [email or web address]
[2021-11-21 11:10] LABS: Alanine Aminotransferase 13 units/L (7-56); Albumin 4.3 g/dL (3.9-5); Blood Urea Nitrogen 9 mg/dL (7-17); Calcium 9.6 mg/dL (8.4-10.2); Hemolysis Index 8
[2021-11-21 11:12] LABS: BUN/Creatinine Ratio 13
[2021-11-21 11:46] LABS: Basophils # (Auto) 0.1 K/mm3 (0.0-0.1); Basophils % (Auto) 0.8 % (0.0-1.8); Eosinophils % (Auto) 0.4 % (0.0-4.3); Hematocrit 37.5 % (30.3-42.9); Hemoglobin 12.2 gm/dl (10.1-14.3); Lymphocytes # (Auto) 1.9 K/mm3 (1.2-5.4); Lymphocytes % (Auto) 26.6 % (13.4-35.0); Mean Corpuscular HGB Conc 33 % (30-34); Mean Corpuscular Volume 91 fl (79-97); Monocytes # (Auto) 0.4 K/mm3 (0.0-0.8); Monocytes % (Auto) 5.5 % (0.0-7.3); Platelet Count 323 K/mm3 (140-440); Red Blood Count 4.13 M/mm3 (3.65-5.03); Red Cell Distribution Width 13.8 % (13.2-15.2)
--- NOTE | 2021-11-22 08:28 | Electrocardiograph Report ---
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
== END 2021-11-21 11:45 | disposition left against medical advice (07) ==
LOC: ED 09:39
DX: R06.02 Shortness of breath (principal); R53.1 Weakness; I10 Essential (primary) hypertension; Z53.21 Procedure and treatment not carried out due to patient leaving prior to being seen by health care provider
CPT/HCPCS: 36415; 71046; 80053; 84484; 85025; 93005

== ENCOUNTER 2022-02-09 07:28 | Emergency (ER) | payer SELFPAY ==
[2022-02-09 07:36] VITALS: BP 146/73
--- NOTE | 2022-02-09 08:43 | XRay Report ---
CHEST 2 VIEWS INDICATION / CLINICAL INFORMATION: Chest Pain. COMPARISON: 11/21/2021 FINDINGS: SUPPORT DEVICES: None. HEART / MEDIASTINUM: No significant abnormality. LUNGS / PLEURA: No significant pulmonary or pleural abnormality. No pneumothorax. ADDITIONAL FINDINGS: No significant additional findings. IMPRESSION: 1. No acute findings. Signer Name: Catarino Kelly Jr, MD Signed: 02/09/2022 8:39 AM Workstation Name: [id number]
[2022-02-09 08:46] LABS: Basophils % (Auto) 0.9 % (0.0-1.8); Eosinophils % (Auto) 0.5 % (0.0-4.3); Hematocrit 37.1 % (30.3-42.9); Lymphocytes # (Auto) 1.3 K/mm3 (1.2-5.4); Lymphocytes % (Auto) 29.4 % (13.4-35.0); Mean Corpuscular HGB Conc 32 % (30-34); Mean Corpuscular Volume 91 fl (79-97); Monocytes # (Auto) 0.3 K/mm3 (0.0-0.8); Monocytes % (Auto) 7.1 % (0.0-7.3); Platelet Count 307 K/mm3 (140-440); Red Blood Count 4.08 M/mm3 (3.65-5.03); Red Cell Distribution Width 14.1 % (13.2-15.2)
[2022-02-09 09:02] LABS: Alanine Aminotransferase 17 units/L (7-56); Albumin 4.4 g/dL (3.9-5); Blood Urea Nitrogen 11 mg/dL (7-17); Calcium 9.4 mg/dL (8.4-10.2); Hemolysis Index 0
[2022-02-09 09:08] LABS: BUN/Creatinine Ratio 16
[2022-02-09] MEDS ORDERED: CYCLOBENZAPRINE 10 MG TAB PO ONE (09:16)
[2022-02-09] MEDS ORDERED: IBUPROFEN 800 MG TAB PO ONE (09:16)
--- NOTE | 2022-02-09 09:33 | Emergency Department Report ---
ED General Adult HPI - General Chief complaint: Neck Pain/Injury Stated complaint: LEFT ARM PAIN/HEADACHE PUI?: No Time Seen by Provider: 02/09/22 08:04 Source: patient Mode of arrival: Ambulatory Limitations: No Limitations - History of Present Illness Initial comments: Patient is a 56-year-old female that comes to the emergency room complaining of neck pain, the left side of her neck, radiating down her left arm, with associ ated pain up underneath her left breast. She denies shortness of breath. Denies nausea. Denies fever or chills. Denies trauma. Has not taking anything prior to arrival in the hospital for the pain. PCP [facility] Home medications metoprolol and Norvasc Patient denies any prior cardiac events. Patient states that sometimes the pain is worse with movement but other times it just occurs randomly.. She states that it just comes and goes randomly. -: Gradual, days(s) Location: upper extremity Severity scale (0 -10): 3 Quality: aching Consistency: intermittent Improves with: none Worsens with: none Associated Symptoms: denies other symptoms. denies: confusion, chest pain, cough, diaphoresis, fever/chills, headaches, loss of appetite, malaise, nausea/vomiting, rash, seizure, shortness of breath, syncope, weakness Treatments Prior to Arrival: none - Related Data Previous Rx's Medication Instructions Recorded Last Taken Type Metoprolol [Lopressor TAB] 50 mg PO BID #60 tab 11/07/21 Unknown Rx amLODIPine 10 mg PO DAILY #30 tab 11/07/21 Unknown Rx Cyclobenzaprine [Flexeril] 10 mg PO TID PRN #10 tablet 02/09/22 Unknown Rx Ibuprofen [Motrin] 800 mg PO Q8HR PRN #30 tablet 02/09/22 Unknown Rx Allergies Allergy/AdvReac Type Severity Reaction Status Date / Time No Known Allergies Allergy Verified 11/06/21 17:35 ED Review of Systems ROS: Stated complaint: LEFT ARM PAIN/HEADACHE Other details as noted in HPI Comment: All other systems reviewed and negative ED Past Medical Hx - Past Medical History Previous Medical History?: Yes Hx Hypertension: Yes Hx Congestive Heart Failure: No Hx Diabetes: No Hx GERD: Yes Hx Asthma: No Hx COPD: No Additional medical history: Obesit, Debra scan in 2015 normal, echo in 2022 normal BiV function - Surgical History Past Surgical History?: Yes Additional Surgical History: c section x 3 - Family History Family history: other (Mother has a history of of hypertension, father of an aneurysm rupture) - Social History Smoking Status: Never Smoker Substance Use Type: None - Medications Home Medications: Home Medications Medication Instructions Recorded Confirmed Last Taken Type Metoprolol [Lopressor TAB] 50 mg PO BID #60 tab 11/07/21 Unknown Rx amLODIPine 10 mg PO DAILY #30 tab 11/07/21 Unknown Rx Cyclobenzaprine [Flexeril] 10 mg PO TID PRN #10 tablet 02/09/22 Unknown Rx Ibuprofen [Motrin] 800 mg PO Q8HR PRN #30 tablet 02/09/22 Unknown Rx ED Physical Exam - General Limitations: No Limitations General appearance: alert, in no apparent distress - Head Head exam: Present: atraumatic, normocephalic - Eye Eye exam: Present: normal appearance, PERRL, EOMI - ENT ENT exam: Present: normal exam, mucous membranes moist - Neck Neck exam: Present: normal inspection, full ROM. Absent: tenderness, meningismus, lymphadenopathy, thyromegaly - Respiratory Respiratory exam: Present: normal lung sounds bilaterally. Absent: respiratory distress, wheezes, rales, rhonchi, stridor - Cardiovascular Cardiovascular Exam: Present: regular rate, normal rhythm. Absent: systolic murmur, diastolic murmur, rubs, gallop - GI/Abdominal GI/Abdominal exam: Present: soft, normal bowel sounds. Absent: tenderness - Rectal Rectal exam: Present: deferred - Extremities Exam Extremities exam: Present: normal inspection, full ROM - Expanded Upper Extremity Exam Left Shoulder Exam: Present: normal inspection, full ROM. Absent: tenderness, swelling, abrasion, laceration, ecchymosis, deformity Upper Arm exam: Present: normal inspection, full ROM. Absent: tenderness, swelling Elbow exam: Present: normal inspection, full ROM. Absent: tenderness Forearm Wrist exam: Present: normal inspection Hand Wrist exam: Present: normal inspection Vascular: Present: normal capillary refill - Back Exam Back exam: Present: normal inspection, full ROM - Neurological Exam Neurological exam: Present: alert, oriented X3 - Psychiatric Psychiatric exam: Present: normal affect, normal mood - Skin Skin exam: Present: warm, dry, intact, normal color. Absent: rash - Expanded Skin Exam Expanded 1 - Area of pain. No cervical spine tenderness. No tenderness over AC joint or shoulder on palpation. No erythema. No abrasions lacerations or contusions ED Course Vital Signs 02/09/22 07:34 Temperature 98.3 F Pulse Rate 79 Respiratory 14 Rate Blood Pressure 146/73 [Left] O2 Sat by Pulse 100 Oximetry ED Medical Decision Making - Lab Data Result diagrams: 02/09/22 08:22 02/09/22 08:22 - EKG Data -: EKG Interpreted by Fl EKG shows normal: sinus rhythm Rate: normal - EKG Data When compared to previous EKG there are: no significant change Interpretation: no acute changes - Radiology Data Radiology results: report reviewed, image reviewed [facility] - Medical Decision Making Vital Signs 02/09/22 07:34 Temperature 98.3 F Pulse Rate 79 Respiratory 14 Rate Blood Pressure 146/73 [Left] O2 Sat by Pulse 100 Oximetry Labs 02/09/22 02/09/22 08:22 08:22 WBC 4.4 L RBC 4.08 Hgb 12.0 Hct 37.1 MCV 91 MCH 29 MCHC 32 RDW 14.1 Plt Count 307 Lymph % (Auto) 29.4 Dewitt % (Auto) 7.1 Eos % (Auto) 0.5 Baso % (Auto) 0.9 Lymph # (Auto) 1.3 Dewitt # (Auto) 0.3 Eos # (Auto) 0.0 Baso # (Auto) 0.0 Seg Neutrophils % 62.1 Seg Neutrophils # 2.7 Sodium 141 Potassium 4.2 Chloride 103.3 Carbon Dioxide 28 Anion Gap 14 BUN 11 Creatinine 0.7 Estimated GFR > 60 BUN/Creatinine Ratio 16 Glucose 109 H Calcium 9.4 Total Bilirubin 0.30 AST 16 ALT 17 Alkaline Phosphatase 72 Troponin T < 0.010 Total Protein 7.8 Albumin 4.4 Albumin/Globulin Ratio 1.3 Given patient's history/risk factors labs have been obtained to rule out ACS. Twelve-lead and chest x-ray completed. Twelve-lead EKG is sinus rhythm without acute ST segment elevation or depression. Chest x-ray is negative for any acute process including heart failure, infiltrate or congestion. Labs noted, troponin negative, electrolytes normal EMR reveals a normal echo this year. She has had prior Debra scans that were normal. Patient medicated with Motrin and Flexeril in ER. She did get some relief. Patient was ambulatory and taking p.o. without difficulty. Activity does not make her pain recurred. Patient being discharged home with discharge plan of care including diet, activity, medications and follow-up. She verbalizes understanding of plan of care. - Differential Diagnosis Rule out ACS versus musculoskeletal etiology of pain Critical care attestation.: If time is entered above; I have spent that time in minutes in the direct care of this critically ill patient, excluding procedure time. ED Disposition Clinical Impression: Musculoskeletal pain Disposition: HOME / SELF CARE / HOMELESS Is pt being admited?: No Does the pt Need Aspirin: No Condition: Stable Instructions: Musculoskeletal Pain Additional Instructions: Medications as ordered today Stay well-hydrated with water Follow-up with [facility] and let them know that you were in the ER. They can see your lab results. They can monitor you to make sure that this resolves and is nothing involving or requiring more work-up. Your labs, EKG and chest x-ray were normal today Referrals: [facility] [Other] - 3-5 Days Time of Disposition: 09:29
--- NOTE | 2022-02-10 11:52 | Electrocardiograph Report ---
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
== END 2022-02-09 10:14 | disposition home or self-care (01) ==
LOC: ED 07:28
DX: M79.18 Myalgia, other site (principal); I10 Essential (primary) hypertension
CPT/HCPCS: 36415; 71046; 80053; 84484; 85025; 93005; 99284